=== PATIENT | female | born 1960 | race Caucasian/White ===

== ENCOUNTER 2018-07-06 05:50 | Day surgery (SDC) | payer OTHER, MEDICAID ==
[~2018-07-06] VITALS: Ht 170.2 cm; Wt 68.9 kg
[2018-07-06] MEDS ORDERED: fentaNYL CITRATE/PF 100 MCG/2 ML AMP IVP ONE (07:40)
[2018-07-06] MEDS ORDERED: NS 1000 ML IV.SOLN IV ONE (07:40)
[2018-07-06] MEDS ORDERED: SEVOFLURANE 15 MIN GAS INH ONE (07:40)
[2018-07-06] MEDS ORDERED: LR 1,000 ML IV.SOLN IV ONE (07:40)
[2018-07-06] MEDS ORDERED: MIDAZOLAM HCL 5 MG/5 ML VIAL IVP ONE (07:40)
[2018-07-06] MEDS ORDERED: NS IRRIG SOLN 1000 ML IR ONE (07:40)
[2018-07-06] MEDS ORDERED: PROPOFOL 200MG/ 20ML VIAL (DIPRIVAN) IV ONE (07:40)
[2018-07-06] MEDS ORDERED: ONDANSETRON HCL 4 MG/2 ML VIAL IVP PRN ×2 (08:15→11:15)
[2018-07-06] MEDS ORDERED: KETOROLAC TROMETHAMINE 30 MG VIAL IVP PRN (08:15)
[2018-07-06] MEDS ORDERED: fentaNYL CITRATE/PF 100 MCG/2 ML AMP IVP PRN ×2 (08:15)
[2018-07-06] MEDS ORDERED: fentaNYL CITRATE/PF 100 MCG/2 ML AMP ONE (09:48)
[2018-07-06] MEDS ORDERED: IBUPROFEN 800 MG TABLET PO PRN (11:15)
[2018-07-06] MEDS ORDERED: OXYCODONE/ACETAMINOPHEN 5-325 TABLET PO PRN ×2 (11:15)
== END 2018-07-06 11:45 | disposition home or self-care (01) ==
LOC: SDS 05:50 → SMU 05:50 → SDS 11:45
PROVIDERS: ATTEND Obstetrics & Gynecology
DX: N85.8 Other specified noninflammatory disorders of uterus (principal); Z79.899 Other long term (current) drug therapy; Z87.891 Personal history of nicotine dependence; M19.90 Unspecified osteoarthritis, unspecified site; E03.9 Hypothyroidism, unspecified; Z98.890 Other specified postprocedural states; Z80.3 Family history of malignant neoplasm of breast; Z80.0 Family history of malignant neoplasm of digestive organs; Z82.49 Family history of ischemic heart disease and other diseases of the circulatory system; Z80.41 Family history of malignant neoplasm of ovary
CPT/HCPCS: 58558; 88305; J2250; J2704; J3010; J7030; J7120